=== PATIENT | female | born 1990 | race African-American/Black ===

== ENCOUNTER 2019-07-30 08:15 | Day surgery (SDC) | payer MEDICAID ==
[~2019-07-30] VITALS: Ht 172.7 cm; Wt 88.9 kg
[2019-07-30] MEDS ORDERED: MIDAZOLAM 2 MG/2 ML VIAL ONE (10:29)
[2019-07-30] MEDS ORDERED: fentaNYL 0.05 MG/ML VIAL ONE (10:29)
[2019-07-30] MEDS ORDERED: MIDAZOLAM 2 MG/2 ML VIAL IVP ONE (10:45)
[2019-07-30] MEDS ORDERED: fentaNYL 0.05 MG/ML VIAL IVP ONE (10:46)
== END 2019-07-30 11:30 | disposition home or self-care (01) ==
LOC: MDS 08:15 → MMU 08:57 → MDS 11:30
PROVIDERS: ATTEND Internal Medicine Gastroenterology
DX: R19.7 Diarrhea, unspecified (principal); K51.90 Ulcerative colitis, unspecified, without complications; K62.89 Other specified diseases of anus and rectum; Z79.899 Other long term (current) drug therapy
CPT/HCPCS: 45380; 81025; 88305; J2250; J3010